=== PATIENT | female | born 1955 | race Caucasian/White ===

== ENCOUNTER 2016-05-14 03:59 | Inpatient (IN) | payer BC ==
[~2016-05-14] VITALS: Ht 157.5 cm; Wt 65.8 kg
[~2016-05-14 03:59] MED LIST: ADVIL200 MG PO; CLARITIN10 M3 PO; DAILY MULTIPLE1 EACH PO; DECADRON4 MG PO; MAGNESIUM400 M1 PO; PRILOSEC20 MG PO; PROAIR HFA8.5 GM IH; TESSALON PERLE100 MG PO; TOPROL XL25 MG PO; TRAZODONE HCL50 MG PO; XANAX0.5 MG PO
[2016-05-14 04:31] LABS: HEMATOCRIT 36.8 % (36.0-46.0); MCHC 35.6 G/DL (30.0-36.0); MCV 84.4 FL (83-99); MEAN PLAT.VOLUME 8.5 uM^3 (9.5-12.4); PLATELET COUNT 277 K/uL (156-360); RBC DIS.WIDTH-SD 39.3 % (39-53); RED BLOOD COUNT 4.36 M/uL (3.80-5.20)
[2016-05-14 04:34] LABS: WHITE BLOOD COUNT 9.4 K/uL (4.1-10.2)
[2016-05-14 04:42] LABS: CHLORIDE 94 mEq/L (99-109); POTASSIUM 4.3 mEq/L (3.7-5.4); SODIUM 124 mEq/L (136-147)
[2016-05-14 04:44] LABS: GLUCOSE 99 mg/dL (70-99)
[2016-05-14 04:46] LABS: ANION GAP 10 MEQ/L (2-14); TOTAL BILIRUBIN 0.5 mg/dL (0.0-1.0)
[2016-05-14 04:48] LABS: ALKALINE PHOSPHATASE 109 IU/L (3-129); GFR ESTIMATE (CALCULATED) > 59 mL/min/
[2016-05-14 04:49] LABS: UREA NITROGEN (BUN) 9 mg/dL (9-23)
[2016-05-14 05:37] LABS: LIPASE 24 U/L (1.0-51.0)
[2016-05-14 06:11] LABS: ADD MIUA? YES; BILIRUBIN NEGATIVE; BLOOD MODERATE; COLOR YELLOW ((YELLOW)); GLUCOSE (STRIP) NEGATIVE; KETONES NEGATIVE; LEUKOCYTES NEGATIVE; NITRITE NEGATIVE; PROTEIN (STRIP) 30; SPECIFIC GRAVITY 1.019 (1.000-1.030); UROBILINOGEN 0.2 MG/DL (0.2-1.0)
[2016-05-14 06:23] LABS: BACTERIA NONE SEEN /HPF; EPITHELIAL CELLS RARE /HPF; MUCUS 1+ /LPF; RED BLOOD CELLS 15-20 /HPF (0-5); UCUL ADDED? NO; WHITE BLOOD CELLS 0-5 /HPF (0-5)
[2016-05-14 09:54] VITALS: BP 136/83
[2016-05-14 10:12] VITALS: BP 136/83
[2016-05-14 15:03] VITALS: BP 122/73
[2016-05-14 20:04] VITALS: BP 114/62
[2016-05-15] VITALS (7 sets, daily range): BP systolic 121–156; BP diastolic 71–83
[2016-05-15 06:03] LABS: INTER. NORMALIZED RATIO 1.1; PTT 29.7 (25-32)
[2016-05-15 06:11] LABS: ANION GAP 8 MEQ/L (2-14); CHLORIDE 97 MEQ/L (99-109); GFR ESTIMATE (CALCULATED) > 59 mL/min/; GLUCOSE 83 mg/dL (70-99); POTASSIUM 3.7 MEQ/L (3.7-5.4); SAMPLE HEMOLYSIS CHECK 0; SAMPLE ICTERIC CHECK 0; SAMPLE LIPEMIA CHECK 0; SODIUM 129 MEQ/L (136-147); UREA NITROGEN (BUN) 7 mg/dL (9-23)
[2016-05-15 06:15] LABS: ALKALINE PHOSPHATASE 72 IU/L (3-129); EOSINOPHIL (%) 1.1 % (0-5); EOSINOPHIL COUNT 0.1 K/uL (0-0.3); IMMATURE GRANULOCYTE (%) 0.4 % (0.0-0.7); LYMPHOCYTE COUNT 0.6 K/uL (1.0-2.8); MCH 30.6 PG (29.0-34.0); MCHC 35.3 G/DL (30.0-36.0); MCV 86.7 FL (83-99); MEAN PLAT.VOLUME 8.9 uM^3 (9.5-12.4); MONOCYTE (%) 11.4 % (3-12); MONOCYTE COUNT 0.6 K/uL (0-0.8); NEUTROPHIL (%) 76.2 % (45-76); NEUTROPHIL COUNT 4.3 K/uL (1.8-6.4); PLATELET COUNT 219 K/uL (156-360); RBC DIS.WIDTH-CV 13.4 % (11.8-14.6); RBC DIS.WIDTH-SD 42.6 % (39-53); RED BLOOD COUNT 3.92 M/uL (3.80-5.20); TOTAL BILIRUBIN 0.5 MG/DL (0.0-1.0)
[2016-05-15 06:21] LABS: WHITE BLOOD COUNT 5.6 K/uL (4.1-10.2)
[2016-05-15] MEDS ORDERED: ADVAIR 250/501 DISK IH (12:04)
[2016-05-15] MEDS ORDERED: VITAMIN E100 UNIT PO (12:05)
[2016-05-15] MEDS ORDERED: DAILY VALUE1 EACH PO (12:05)
[2016-05-15] MEDS ORDERED: CLARITIN,ALAVAR10 MG PO (12:06)
[2016-05-15] MEDS ORDERED: VITAMIN D2000 UNI1 PO (12:06)
[2016-05-16 04:10] VITALS: BP 125/81
[2016-05-16 06:53] LABS: EOSINOPHIL COUNT 0.1 K/uL (0-0.3); HEMATOCRIT 36.1 % (36.0-46.0); IMMATURE GRANULOCYTE (%) 0.2 % (0.0-0.7); LYMPHOCYTE COUNT 0.7 K/uL (1.0-2.8); MCH 29.2 PG (29.0-34.0); MCHC 33.5 G/DL (30.0-36.0); MCV 87.2 FL (83-99); MEAN PLAT.VOLUME 9.1 uM^3 (9.5-12.4); MONOCYTE (%) 12.4 % (3-12); MONOCYTE COUNT 0.6 K/uL (0-0.8); NEUTROPHIL (%) 71.8 % (45-76); NEUTROPHIL COUNT 3.7 K/uL (1.8-6.4); PLATELET COUNT 226 K/uL (156-360); RBC DIS.WIDTH-CV 13.7 % (11.8-14.6); RBC DIS.WIDTH-SD 43.6 % (39-53); RED BLOOD COUNT 4.14 M/uL (3.80-5.20); WHITE BLOOD COUNT 5.2 K/uL (4.1-10.2)
[2016-05-16 07:21] LABS: ANION GAP 11 MEQ/L (2-14); CHLORIDE 99 MEQ/L (99-109); GFR ESTIMATE (CALCULATED) > 59 mL/min/; POTASSIUM 3.7 MEQ/L (3.7-5.4); SAMPLE HEMOLYSIS CHECK 0; SAMPLE ICTERIC CHECK 0; SAMPLE LIPEMIA CHECK 0; SODIUM 135 MEQ/L (136-147); UREA NITROGEN (BUN) 7 mg/dL (9-23)
[2016-05-16 07:24] LABS: GLUCOSE 112 mg/dL (70-99)
[2016-05-16 07:29] VITALS: BP 122/82
[2016-05-16 12:00] VITALS: BP 109/74
[2016-05-16] MEDS ORDERED: HYDROCODON-ACE1 EAC7 PO (12:19)
[2016-05-16] MEDS ORDERED: TYLENOL REGULA325 MG PO (12:19)
[2016-05-16] MEDS ORDERED: COLACE100 MG PO (12:24)
== END 2016-05-16 13:22 | disposition home or self-care (01) | DRG 614 ==
LOC: EME 03:59 → EDOF 08:14 → 5SOUTH 08:14
PROVIDERS: Hospitalist; Internal Medicine Hematology & Oncology; Nurse Practitioner Family
PROC: [UNRECOGNIZED PROCEDURE] (principal; 2016-05-15)
DX: E87.1 Hypo-osmolality and hyponatremia (principal); C79.71 Secondary malignant neoplasm of right adrenal gland; F41.9 Anxiety disorder, unspecified; N20.0 Calculus of kidney; R00.0 Tachycardia, unspecified; F17.211 Nicotine dependence, cigarettes, in remission; Z85.9 Personal history of malignant neoplasm, unspecified
CPT/HCPCS: 74176; 74177; 76705; 77012; 80048; 80053; 81003; 83690; 84295; 85025; 85027; 85610; 85730; 88305; 88341 TC; 88342 TC; 94640; 94640 76; 99281; 99285; J1644; J1885; J2060; J2270; J2405; J2765; J3010; J7030

== ENCOUNTER 2016-06-13 09:22 | Observation (INO) | payer BC, OTHER ==
[~2016-06-13] VITALS: Ht 157.5 cm; Wt 63.1 kg
[~2016-06-13 09:22] MED LIST changes: +ADVAIR 250/501 DISK IH; +CLARITIN,ALAVAR10 MG PO; +COLACE100 MG PO; +DAILY VALUE1 EACH PO; +HYDROCODON-ACE1 EAC7 PO; +TYLENOL REGULA325 MG PO; +VITAMIN D2000 UNI1 PO; +VITAMIN E100 UNIT PO
[2016-06-13 10:02] LABS: HEMATOCRIT 41.7 % (36.0-46.0); MCH 30.7 PG (29.0-34.0); MCHC 34.1 G/DL (30.0-36.0); MCV 90.3 FL (83-99); MEAN PLAT.VOLUME 10.1 uM^3 (9.5-12.4); PLATELET COUNT 91 K/uL (156-360); RBC DIS.WIDTH-CV 15.2 % (11.8-14.6); RBC DIS.WIDTH-SD 48.9 % (39-53); RED BLOOD COUNT 4.62 M/uL (3.80-5.20); WHITE BLOOD COUNT 12.5 K/uL (4.1-10.2)
[2016-06-13 10:10] LABS: CHLORIDE 106 mEq/L (99-109); POTASSIUM 4.2 mEq/L (3.7-5.4); SODIUM 144 mEq/L (136-147)
[2016-06-13 10:11] LABS: GLUCOSE 95 mg/dL (70-99)
[2016-06-13 10:13] LABS: ANION GAP 10 MEQ/L (2-14)
[2016-06-13 10:15] LABS: GFR ESTIMATE (CALCULATED) > 59 mL/min/
[2016-06-13 10:16] LABS: UREA NITROGEN (BUN) 17 mg/dL (9-23)
[2016-06-13 10:34] LABS: ABS NEUTROPHIL COUNT 9.4; ATYPICAL LYMPHOCYTE 0.9 %; BAND NEUTROPHILS 6.1 % (0-8.0); EOSINOPHIL ABS CT 0; INSTRUMENT ABS NEUTROPHIL CT 8.5 K/uL; LYMPHOCYTES 11.3 % (15.0-45.0); METAMYELOCYTES 1.7 %; MYELOCYTES 6.1 %; SEG.NEUTROPHILS 68.7 % (46.0-76.0); TOXIC GRANULATION 1+
[2016-06-13] MEDS ORDERED: ADVAIR HFA120 INHALA IH (10:51)
[2016-06-13] MEDS ORDERED: SODIUM CHLORIDE1 G1 PO (10:52)
[2016-06-13] MEDS ORDERED: PRILOSEC20 MG PO (10:53)
[2016-06-13] MEDS ORDERED: MUCINEX D ER T1 EAC1 PO (10:54)
[2016-06-13] MEDS ORDERED: LEVOFLOXACIN500 MG PO (10:55)
[2016-06-13] MEDS ORDERED: PREDNISONE10 MG PO (10:58)
[2016-06-13] MEDS ORDERED: DOCUSATE SODIU100 MG PO (12:26)
[2016-06-13] MEDS ORDERED: PROCHLORPERAZIN10 MG PO (12:27)
[2016-06-13 17:27] LABS: TROP-I INTERPRETATION NEGATIVE; TROPONIN-I 0.03 ng/mL (0.0-0.30)
[2016-06-13 17:30] VITALS: BP 140/74
[2016-06-13 21:00] VITALS: BP 123/76
[2016-06-13 22:52] LABS: TROP-I INTERPRETATION NEGATIVE; TROPONIN-I 0.04 ng/mL (0.0-0.30)
[2016-06-13 23:58] LABS: INFLUENZA A VIRAL ANTIGEN NEGATIVE; INFLUENZA B VIRAL ANTIGEN POSITIVE
[2016-06-14 00:36] VITALS: BP 137/83
[2016-06-14 03:30] VITALS: BP 109/71
[2016-06-14 07:42] LABS: INTERNAL CONTROL VALID? YES
[2016-06-14 08:20] LABS: ANION GAP 8 MEQ/L (2-14); CHLORIDE 104 MEQ/L (99-109); GFR ESTIMATE (CALCULATED) > 59 mL/min/; POTASSIUM 3.8 MEQ/L (3.7-5.4); SAMPLE HEMOLYSIS CHECK 0; SAMPLE ICTERIC CHECK 0; SAMPLE LIPEMIA CHECK 0; SODIUM 140 MEQ/L (136-147); UREA NITROGEN (BUN) 15 mg/dL (9-23)
[2016-06-14 08:21] LABS: GLUCOSE 151 mg/dL (70-99)
[2016-06-14] MEDS ORDERED: NICOTINE PATCH1 EAC2 TD (11:12)
[2016-06-14] MEDS ORDERED: SPIRIVA RESPIMAT4 GM IH (11:13)
[2016-06-14] MEDS ORDERED: TAMIFLU75 MG PO (11:13)
[2016-06-14 11:48] VITALS: BP 120/69
== END 2016-06-14 13:05 | disposition home or self-care (01) ==
LOC: EME 09:22 → 5WEST 11:25 → EDOF 11:25 → 5WEST 17:10
PROVIDERS: Emergency Medicine; Hospitalist; Internal Medicine; Internal Medicine Pulmonary Disease
DX: J44.1 Chronic obstructive pulmonary disease with (acute) exacerbation (principal); J44.0 Chronic obstructive pulmonary disease with (acute) lower respiratory infection; J20.9 Acute bronchitis, unspecified; J10.1 Influenza due to other identified influenza virus with other respiratory manifestations; D69.6 Thrombocytopenia, unspecified; F17.210 Nicotine dependence, cigarettes, uncomplicated; Z85.118 Personal history of other malignant neoplasm of bronchus and lung; F41.9 Anxiety disorder, unspecified; R00.0 Tachycardia, unspecified
CPT/HCPCS: 71010; 71275; 80048; 82948; 83880; 84484; 85025; 87070; 87205; 87449; 87502; 93005; 94640; 94640 76; 94799; 99202; 99281; 99285; G0378; J1650; J1815; J2930; J7030; J7512